=== PATIENT | female | born 1940 | race Caucasian/White ===

== ENCOUNTER 2016-10-05 08:46 | Day surgery (SDC) | payer MEDICARE, OTHER ==
--- NOTE | 2016-10-05 07:13 | History and Physical Report ---
CHIEF COMPLAINT/HISTORY OF CHIEF COMPLAINT: This patient with a history of intractable lumbar radiculitis presents today for implantation of a permanent spinal cord stimulator based upon a successful trial and failure of all other therapies. PAST MEDICAL HISTORY: Cardiovascular disease, chronic obstructive pulmonary disease, degenerative arthritis, gastritis, and sleep disturbance. PAST SURGICAL HISTORY: Appendectomy, hysterectomy, bladder surgery, renal surgery, knee replacement, and rotator cuff surgery. MEDICATIONS ON ADMISSION: List to be provided. ALLERGIES: None. FAMILY/PSYCHOSOCIAL HISTORY: Caffeine. Family history is noncontributory. SYSTEMS REVIEW: The patient is appropriate in no acute distress. The remainder of the systems review is positive for chronic lung disease, degenerative arthritis, abdominal pain, sleep disturbance, and cataracts. PHYSICAL EXAMINATION: Height is 5'1", weight is 200 pounds. Vital signs - Blood pressure is not available. HEENT: Within normal limits. LUNGS: Clear. HEART: Regular rate and rhythm. ABDOMEN: Nontender. MUSCULOSKELETAL: Examination of the musculoskeletal system shows pain and tenderness throughout the lumbar spine. Range of motion does produce pain throughout the low back and extending into both legs. Ambulation - No assistive device utilized currently, although is used on a regular basis. NEUROLOGIC: Cranial nerves are intact. IMPRESSION: INTRACTABLE LUMBAR RADICULITIS, ICD10 CODE M54.16 AND M54.17. PLAN: After failure of all other therapies and the success of stimulator trial at 75-90% pain control she is here for implantation of a permanent system. The procedure will be considered outpatient, although a complicated history may require overnight stay. SERVANDO ORTA D.O. Date & Time JOB NUMBER: [id number] MTDD
[~2016-10-05 08:46] MED LIST: ACETAMINOPHEN 1000MG/100 ML PREMIX IV ONE; CEFAZOLIN 2 Gram 50 ML IVPB ONE; FAMOTIDINE 20MG TABLET PO ONE; MECLIZINE 25 MG TABLET PO ONE; METOCLOPRAMIDE 10 MG TABLET PO ONE
[2016-10-05] MEDS ORDERED: ALBUTEROL SULFATE (0.083%) 2.5 MG/3 ML NEB INH ONE (14:00)
[2016-10-05] MEDS ORDERED: METOCLOPRAMIDE 10 MG TABLET PO PRN (14:31)
[2016-10-05] MEDS ORDERED: SENNOSIDES/DOCUSATE SODIUM UD CAPSULE PO PRN ×2 (14:31)
[2016-10-05] MEDS ORDERED: METOCLOPRAMIDE HCL 10 MG/2 ML VIAL IVP PRN (14:31)
[2016-10-05] MEDS ORDERED: HYDROMORPHONE HCL 2 MG/ML VIAL IM PRN (14:31)
[2016-10-05] MEDS ORDERED: CEFAZOLIN 2 Gram 50 ML IVPB SCH (14:31)
[2016-10-05] MEDS ORDERED: OXYCODONE/APAP 10MG-325MG TABLET PO PRN (14:31)
[2016-10-05] MEDS ORDERED: TEMAZEPAM 15 MG CAPSULE PO PRN ×2 (14:31)
[2016-10-05] MEDS ORDERED: ACETAMINOPHEN 325 MG TAB PO PRN ×2 (14:31)
[2016-10-05] MEDS ORDERED: DIPHENHYDRAMINE HCL 25 MG CAPSULE PO PRN ×2 (14:31)
[2016-10-05] MEDS ORDERED: AL HYDROX/MAG HYDROX 30ML UD PO PRN (14:31)
[2016-10-05] MEDS ORDERED: HYDROCODONE/APAP 7.5/325MG TABLET PO PRN ×2 (14:31)
[2016-10-05] MEDS ORDERED: DIPHENHYDRAMINE HCL IV 50 MG/ML VIAL IVP PRN ×2 (14:31)
[2016-10-05] MEDS ORDERED: HYDROMORPHONE HCL 1 MG/ML CPJ IM PRN (14:31)
[2016-10-05] MEDS ORDERED: IPRATROPIUM/ALBUTEROL (0.5MG/3MG) NEB INH PRN (14:34)
[2016-10-05] MEDS: OXYCODONE/APAP 10MG-325MG TABLET PO PRN ×2 (15:24→23:35)
[2016-10-05] MEDS ORDERED: BUPIVACAINE 0.5% W/EPI MPF 30 ML VIAL IVP ONE (15:50)
[2016-10-05] MEDS ORDERED: CEFAZOLIN 1G VIAL IM ONE (15:50)
[2016-10-05] MEDS ORDERED: LIDOCAINE 1% W/EPI 1:200,000 MPF 30ML SQ ONE (15:50)
[2016-10-05] MEDS ORDERED: MIDAZOLAM HCL 2MG/2ML VIAL IV ONE (15:56)
[2016-10-05] MEDS ORDERED: LIDOCAINE 2% MDV (20MG/ML) 20ML VIAL IV ONE (15:56)
[2016-10-05] MEDS ORDERED: *PACU ONLY* KETAMINE HCL 10 MG/ML (20ML) VIAL IV ONE (15:56)
[2016-10-05] MEDS ORDERED: PROPOFOL 10 MG/ML VIAL IV ONE (15:56)
[2016-10-05] MEDS ORDERED: FLUMAZENIL 1MG/10ML VIAL IV ONE (15:56)
[2016-10-05] MEDS ORDERED: FENTANYL PF 100MCG/2ML VIAL IV ONE (15:56)
[2016-10-05] MEDS ORDERED: NICOTINE 21 MG/24 HOUR PATCH TD SCH (16:15)
[2016-10-05] MEDS: CEFAZOLIN 2 Gram 50 ML IVPB SCH (19:53)
[2016-10-05] MEDS: MEMANTINE HCL 10 MG TABLET PO SCH ×2 (19:58→21:57)
[2016-10-05] MEDS: QUETIAPINE FUMARATE 100 MG TABLET PO SCH ×2 (20:00→21:58)
[2016-10-05] MEDS: MIRTAZAPINE 15 MG TABLET PO SCH ×2 (20:00→21:58)
[2016-10-05] MEDS ORDERED: 0.9 % SODIUM CHLORIDE 10ML SYR IVP SCH (22:00)
[2016-10-06] MEDS: CEFAZOLIN 2 Gram 50 ML IVPB SCH (03:11)
[2016-10-06] MEDS: OXYCODONE/APAP 10MG-325MG TABLET PO PRN ×3 (03:11→11:16)
[2016-10-06] MEDS ORDERED: SERTRALINE HCL 50 MG TABLET PO SCH (10:00)
--- NOTE | 2016-10-06 13:08 | RADIOLOGY REPORT ---
EXAM: AP THORACOLUMBAR SPINE HISTORY: STIMULATOR PLACEMENT. TECHNIQUE: AP view of the thoracolumbar spine was obtained. Comparison: Spine radiograph 05/07/14. Fluoroscopic spine image 10/05/16. FINDINGS: Stimulator leads overlie the thoracic spine pointed cephalad. One tip overlies the T8-T9 level and the other tip overlies the T7-T8 level. 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 IMPRESSION: STIMULATOR LEADS OVERLIE THE THORACIC SPINE ABOVE. JOB NUMBER: [id number] MTDD
--- NOTE | 2016-10-06 16:08 | Operative Note - [facility] ---
DATE OF SURGERY: 10/05/16 PREOPERATIVE DIAGNOSIS: LUMBAR RADICULITIS, ICD-10 CODE = M54.16 AND M54.17. OPERATION: 1. FLUOROSCOPICALLY-GUIDED RIGHT EPIDURAL ACCESS T12/1, PLACEMENT OF SPINAL CORD STIMULATOR LEAD 1, A [employer] 16 WITH 16 ELECTRODES POSITIONED RIGHT T7. 2. COMPLEX PROGRAMMING LEAD 1, 20 MINUTES. 3. FLUOROSCOPICALLY-GUIDED EPIDURAL ACCESS RIGHT T11/12, PLACEMENT OF SPINAL CORD STIMULATOR LEAD 2, A [employer] 16 WITH 16 ELECTRODES POSITIONED LEFT, T7. 4. COMPLEX PROGRAMMING LEAD 2, 20 MINUTES. 5. INCISION, SUBCUTANEOUS DISSECTION, AND ANCHORING OF LEAD 1 AND LEAD 2 TO SUPRASPINOUS FASCIA USING AN ANCHORING DEVICE AND NONABSORBABLE SUTURE. 6. INCISION, SUBCUTANEOUS DISSECTION, AND CREATION OF SUBCUTANEOUS POUCH AT RIGHT POSTERIOR/SUPERIOR GLUTEAL MARGIN FOR PLACEMENT OF GENERATOR IDENTIFIED [employer] PROGRAMMABLE RECHARGEABLE. 7. TUNNELING BETWEEN POUCHES. PLACEMENT OF EXTERNAL PORTION OF LEAD 1 AND LEAD 2 INTO GENERATOR POUCH, EACH LEAD INTERFACED WITH BIFURCATED EXTENSION, EACH BIFURCATED EXTENSION INTERFACED TO GENERATOR. 8. PLACEMENT OF GENERATOR POUCH SECURED TO FASCIA WITH NONABSORBABLE SUTURE, PLACEMENT OF LEADS INTO POUCH. CLOSURE OF BOTH INCISIONS, VICRYL FOR FASCIA, RUNNING SUBCUTICULAR VICRYL FOR SKIN. DERMABOND CLOSURE. 9. COMPLEX PROGRAMMING INTERNAL GENERATOR HOME USE TWO STIMULATORS, 20 MINUTES. SURGEON: SERVANDO ORTA D.O. ANESTHESIA: LOCAL SEDATION. ANESTHESIA PROVIDER: JUAN ANTONIO SHAH CRNA. INDICATION: This patient with a history of intractable lumbar radiculitis. Due to the failure of all therapies and the success of a stimulator trial, the patient presents today for implantation of a permanent system. PROCEDURE: Intravenous line, vital sign monitoring, IV sedation. Prepped and draped sterile technique. Patient position prone. Under imaging and from the right, skin at 12/1 and 11/12 epidural interspace infiltrated then two separate curved Epimed needles with [id number] into the space. At 12/1, spinal cord stimulator lead 1, a [employer]ion 16 with 16 electrodes positioned right T7. Epidural access at 11/12, spinal cord stimulator lead 2, a [employer]ion 16 with 16 electrodes, positioned left at T7. Lead 1 at T7 right. Lead 2 left at T7. Complex programming of lead 1 over 20 minute followed by complex programming of lead 2 over 20 minutes ultimately resulting in patterns of stimulation across the back and into the legs; patient indicating we were in all of the areas of her pain. The skin infiltrated above and below the needles, incision made, and subcutaneous dissection was conducted to the supraspinous fascia. Each lead was then anchored to the supraspinous fascia with an anchoring device and nonabsorbable suture. At the right posterior gluteal margin, a site picked by the patient for the generator, skin infiltrated, incision made, and subcutaneous dissection was conducted to form a pouch of suitable size and depth for the generator. A tunneling tool was used to carry the leads into the generator pouch and then each lead was interfaced with a bifurcated extension. Each bifurcated extension interfaced with the generator. Antibiotic irrigation. Bovie for hemostasis. The generator was placed into the pouch and closed with nonabsorbable suture after being anchored to the posterior fascia. The midline incision for the leads was closed with nonabsorbable suture. Vicryl for fascia and tj for skin. Dermabond closure over both sites. She was transported to the Recovery Room stable showing no side -effects from the procedure or the sedation. In the Recovery Room, she received a nebulizer treatment because of her history of chronic lung disease but was stable. She will be kept overnight for observation then discharged in the morning. DISCHARGE INSTRUCTIONS: 1. The sites will remain clean and dry. No showering or bathing in any way that would disrupt dressings. If it happens, contact the clinic. 2. Standard medications resumed, including Levaquin, the antibiotic, 500 mg once a day for 14 days. 3. The office will contact the patient at home. She will return in 5-7 days to evaluate the sites at which point she will be cleared for further activities. Until then, activities should stay low limit bend, lift, push, pull. All other instructions provided, numbers to contact, problems given. She was then discharged. SERVANDO ORTA D.O. Date & Time cc: Dr. Almanzar JOB NUMBER: [id number] [facility]
== END 2016-10-06 11:50 | disposition home or self-care (01) ==
LOC: SUR 08:46 → MEDSURG 14:30 → SUR 10-06 11:50
PROVIDERS: ATTEND Pain Medicine Interventional Pain Medicine
DX: M54.16 Radiculopathy, lumbar region (principal); M54.17 Radiculopathy, lumbosacral region; J44.9 Chronic obstructive pulmonary disease, unspecified; I25.10 Atherosclerotic heart disease of native coronary artery without angina pectoris; F17.200 Nicotine dependence, unspecified, uncomplicated
CPT/HCPCS: 72020; 94640; 95972; J0690; J1170